=== PATIENT | male | born 1950 | race Caucasian/White ===

== ENCOUNTER → 2019-05-18 | Outpatient (CLI) | payer MEDICARE, BC, OTHER ==
[~2019-05-18] MED LIST: IRBE150T12 PO; OTEZ1TAB3 PO; ROSU20TA5 PO; SOTA120T31 PO; WARF-60 PO
--- NOTE | 2019-05-22 11:55 | RADONC ---
RADIATION ONCOLOGY CONSULTATION NOTE DATE: 05/18/2019 CHART NUMBER: [id number] DIAGNOSIS: Prostate cancer. STAGE: IIB, T2c, N0, M0, PSA 5.67, Christopher score of 7 (3-4), grade group 2. ECOG PERFORMANCE STATUS: 0 CONSULTATION NOTE: Mr. Rizo is a very pleasant 69-year-old white male with the diagnosis of what appears to be a stage IIB, T2c, N0, M0 moderate to poorly differentiated Christopher score 7 (3-4) adenocarcinoma of the prostate with an initial PSA level of 5.67 who is presenting to us today for consideration of definitive external beam radiation therapy as a therapeutic option. HISTORY OF PRESENT ILLNESS: The patient was in his usual state of health and a routine PSA was done on 03/06/2019 which was found to be 5.67. On 04/17/2019, the patient underwent a prostatic needle biopsy and pathology revealed a Christopher score 7 (3-4) adenocarcinoma of the prostate involving 40% of the specimen in the right apex of the prostate. At the left base of the prostate, there was a [place] score 6 (3-3) adenocarcinoma of prostate as well. Prolaris score testing was done with a Prolaris molecular score of 3.0. The patient has spoken with his urologist and has decided against a prostatectomy. He is presenting saying that he does wish to undergo definitive external beam radiation therapy with IMRT/IGRT. His is questioning the possibility of SBRT radiation which is not done in our center at this time. PAST MEDICAL HISTORY: The patient's past medical history is positive for hypertension, atrial fibrillation and arthritis. He had both hips replaced as well as a total right knee replacement. He has had radioablation and a pacemaker placed in 2012. ALLERGIES: The patient has NO KNOWN DRUG ALLERGIES. SOCIAL HISTORY: The patient quit smoking in 1985. He reported that he smoked half a pack of cigarettes per day for much of his life. He does not abuse alcohol. FAMILY HISTORY: The patient's family history is positive for a paternal uncle with colon cancer and a maternal grandmother with lung cancer. REVIEW OF SYSTEMS: The patient's review of systems is noncontributory. He denies nausea, vomiting, fevers, chills, night sweats, diplopia, headaches, anxiety or depression, anorexia, weight loss, visual disturbances, chest pain, urinary or bowel difficulties, bone pain or neurological problems. PHYSICAL EXAMINATION: The patient is a well-developed, well-nourished male in no acute distress. HEENT exam is normocephalic, atraumatic. Extraocular movements are intact. There is no palpable cervical, supraclavicular, infraclavicular, axillary, or inguinal lymphadenopathy present. Lungs are clear to auscultation and percussion. Heart has a regular rate and rhythm. Abdomen is benign with no hepatosplenomegaly, masses, or tenderness. Rectal examination reveals a normal anal sphincter tone. His prostate is smooth with no evidence of nodularity. Skeletal examination reveals no tenderness to pressure or percussion of the bony skeleton. Extremities reveal no clubbing, cyanosis, or edema. Neurologic exam is grossly intact as is the remainder of the physical examination. MEDICAL NECESSITY: IMRT/IGRT is clinically indicated for the highly conformal dose planning required. The target volume is in close proximity to critical structures, such as the rectum, bladder, small bowel, and femoral heads. The volume of interest must be covered with narrow margins to adequately protect immediately adjacent structures. The plan requires interpretation of complex testing such as CT localization. As noted above, special planning (IMRT) and localizing (IGRT) is required and essential to maximally protect sensitive normal tissue structures which cannot be accomplished using conventional 3-dimensional planning. ASSESSMENT: I had a very lengthy discussion with this patient and his . We discussed the logistics of treatment planning, simulation and subsequent fractionated daily radiation treatments. We discussed in detail as well alternative therapies such as surgery and observation. We discussed the benefits and drawbacks of each. The patient and his have the results of their Prolaris test score and were discussing with me the meaning of both. We reviewed the risk assessment including the patients 10-year metastasis risk of 0.4% with definitive treatment as well as a 10-year prostatic cancer disease specific mortality risk with conservative management at 2%. At this time, the patient reports that he is a rather nervous individual that would wish definitive treatment rather than observation. He reported that he made up his mind on radiation. We did discuss the fiducial markers necessary for IMRT and he will be scheduling that with his urologist, Dr. Nacho Hall MD. The patient's brought up hypofractionated radiation with stereotactic radiosurgery. I informed them that we do not do that here, but if he would like that, that could be done at another facility. I did discuss the benefits and risks of that treatment as well. The patient and his do wish to have a second opinion and are planning on going to [facility] in [place]. Once they are seen in [place], they will make up their final decision and get back to us on whether or not they wish to be simulated here and have treatment here. I have given the patient my cell phone number, as well as office number if I could be of any further assistance or provide them with any information. I assured them that I have worked with [facility] for many, many years and I have absolute confidence in their ability. [facility] is also an excellent center. I reassured him that he should receive his treatment in any facility in which he feels the most secure. I also informed them that there is no great persaud on treating this. [place]. By the time the fiducial markers are placed, we can delay treatment a couple of extra weeks and perhaps get out of the bad whether season for snow and ice. If the patient has fiducial markers placed sometime in later May radiation planning could be done in early to mid June and radiation could start by the end of June or early July, thereby missing the bulk of the winter, if the patient so desires. Thank you for allowing us to participate in the care of this very pleasant gentleman. If I could be of any further assistance or provide you any information, please free to contact me at any time. As always, warm regards. cc: MD Chucky Miranda MD
== END ==
LOC: M ONCR 08:43
PROVIDERS: ATTEND Radiology Radiation Oncology
DX: C61 Malignant neoplasm of prostate (principal); Z87.891 Personal history of nicotine dependence; Z80.1 Family history of malignant neoplasm of trachea, bronchus and lung; Z80.0 Family history of malignant neoplasm of digestive organs

== ENCOUNTER → 2021-10-21 | Outpatient (CLI) | payer MEDICARE, BC, OTHER ==
[~2021-10-21] MED LIST changes: -IRBE150T12 PO; +IRBE150T7 PO
[2021-10-21 11:31] LABS: BASO % 0.4 % (0.0-1.0); EOS # 0.1 10^3/uL (0.0-0.5); EOS % 1.5 % (0.0-3.0); HEMATOCRIT 45.3 % (42.0-52.0); HEMOGLOBIN 14.3 g/dl (13.5-17.5); LYMPH # 1.5 10^3/uL (1.5-5.0); LYMPH % 20.3 % (24.0-44.0); MEAN CORPUSCULAR HEMOGLOBIN 29.5 pg (27.0-33.0); MEAN CORPUSCULAR HGB CONC 31.6 g/dl (32.0-36.5); MEAN CORPUSCULAR VOLUME 93.6 fl (80.0-96.0); MONO # 0.6 10^3/uL (0.0-0.8); MONO % 7.9 % (2.0-8.0); NEUTROPHILS # 5.2 10^3/uL (1.5-8.5); NEUTROPHILS % 69.6 % (36.0-66.0); PLATELET COUNT, AUTOMATED 200 10^3/uL (150-450); RED BLOOD COUNT 4.84 10^6/uL (4.30-6.10); WHITE BLOOD COUNT 7.5 10^3/uL (4.0-10.0)
[2021-10-21 12:05] LABS: ALBUMIN 3.8 GM/DL (3.2-5.2); ALT/SGPT 35 U/L (12-78); BILIRUBIN,TOTAL 0.6 MG/DL (0.2-1.0); BLOOD UREA NITROGEN 23 MG/DL (7-18); CALCIUM LEVEL 10.1 MG/DL (8.8-10.2); CARBON DIOXIDE LEVEL 30 MEQ/L (21-32); CHLORIDE LEVEL 103 MEQ/L (98-107); CREATININE FOR GFR 0.82 MG/DL (0.70-1.30); GLOMERULAR FILTRATION RATE > 60.0 (>42); GLUCOSE, FASTING 116 MG/DL (70-100); POTASSIUM SERUM 4.7 MEQ/L (3.5-5.1); SODIUM LEVEL 138 MEQ/L (136-145); TOTAL PROTEIN 7.4 GM/DL (6.4-8.2)
[2021-10-21 12:37] LABS: HEPATITIS B SURFACE ANTIGEN NEGATIVE (NEGATIVE)
[2021-10-21 13:04] LABS: HEPATITIS C VIRUS ABY INDEX 0.1 INDEX (<0.8)
[2021-10-21 13:05] LABS: HEPATITIS B CORE ANTIBODY IGM NEGATIVE (NEGATIVE)
[2021-10-21 13:06] LABS: HIV 1&2 SCREEN CENTAUR NEGATIVE (NEGATIVE)
== END ==
LOC: M LAB 09:48
PROVIDERS: ATTEND Physician Assistant
DX: Z79.899 Other long term (current) drug therapy (principal)

== ENCOUNTER → 2024-08-20 | Outpatient (CLI) | payer MEDICARE, BC, OTHER ==
[~2024-08-20] MED LIST changes: +APRE30TA3 PO; +IRBE150T27 PO; -IRBE150T7 PO; -OTEZ1TAB3 PO; -ROSU20TA5 PO; +ROSU20TA86 PO
== END ==
LOC: M EKG 15:32
PROVIDERS: ATTEND Internal Medicine Cardiovascular Disease
DX: I48.0 Paroxysmal atrial fibrillation (principal); I49.5 Sick sinus syndrome

== ENCOUNTER → 2025-02-18 | Outpatient (CLI) | payer MEDICARE, BC | LOC: M CARPUL 14:58 | PROVIDERS: ATTEND Internal Medicine Cardiovascular Disease | DX: I34.0 Nonrheumatic mitral (valve) insufficiency (principal); R94.31 Abnormal electrocardiogram [ECG] [EKG]; I11.9 Hypertensive heart disease without heart failure ==

== ENCOUNTER → 2025-03-01 | Outpatient (REF) | payer MEDICARE, OTHER | LOC: M LAB REF 12:55 | PROVIDERS: ATTEND Physician Assistant | DX: Z95.0 Presence of cardiac pacemaker (principal) ==

== ENCOUNTER 2025-03-07 08:55 | Day surgery (SDC) | payer MEDICARE, BC ==
[~2025-03-07] VITALS: Ht 180.3 cm; Wt 92.5 kg
[~2025-03-07 08:55] MED LIST changes: +ELIQ5TAB PO
[2025-03-07] MEDS: LR 1,000 ML IV SCH (09:57)
[2025-03-07] MEDS ORDERED: ACETAMINOPHEN 1000MG/100ML IV BAG As Ordered ONE (10:39)
[2025-03-07] MEDS ORDERED: MIDAZOLAM INJ 2 MG/2 ML VIAL As Ordered ONE (10:39)
[2025-03-07] MEDS ORDERED: LIDOCAINE 2% 100 MG/5 ML SDV (FOR ANES.) As Ordered ONE (10:39)
[2025-03-07] MEDS: ceFAZolin SOD 2 GM IV ONCE IV ONE (11:50)
[2025-03-07] MEDS ORDERED: ONDANSETRON 4MG/2ML VIAL As Ordered ONE (12:07)
[2025-03-07] MEDS: LIDOCAINE 1% SDV 30 ML VIAL As Ordered ONE (12:20)
[2025-03-07 13:00] VITALS: BP 168/74; TEMP 96.8; O2SAT 100
== END 2025-03-07 13:17 | disposition home or self-care (01) ==
LOC: M SDC 08:55
PROVIDERS: ATTEND Internal Medicine Cardiovascular Disease
DX: I49.5 Sick sinus syndrome (principal); I48.0 Paroxysmal atrial fibrillation; I11.9 Hypertensive heart disease without heart failure; I25.9 Chronic ischemic heart disease, unspecified; R94.31 Abnormal electrocardiogram [ECG] [EKG]; I45.19 Other right bundle-branch block; Z79.899 Other long term (current) drug therapy; Z79.01 Long term (current) use of anticoagulants; Z88.5 Allergy status to narcotic agent
CPT/HCPCS: 33227; C1786; J0131; J0688; J0690; J2250; J2405; J3010

== ENCOUNTER → 2025-04-02 | Outpatient (REF) | payer MEDICARE, BC | LOC: M SFHCDERM 17:30 | PROVIDERS: ATTEND Physician Assistant | DX: L82.1 Other seborrheic keratosis (principal) ==